=== PATIENT | male | born 1950 | race Caucasian/White ===

== ENCOUNTER 2021-04-22 06:47 | Day surgery (SDC) | payer MEDICARE, BC ==
[2021-04-22] MEDS ORDERED: Midazolam 1 MG/ML 2 ML SDV ONE (07:16)
[2021-04-22] MEDS ORDERED: fentaNYL 100 MCG/2 ML SDV ONE (07:16)
[2021-04-22] MEDS ORDERED: Propofol 200 MG/20 ML SDV ONE (07:16)
[2021-04-22] MEDS ORDERED: Sodium Chloride 0.9% 1,000 ML IV SCH (07:30)
[2021-04-22 09:42] VITALS: BP 159/90; PULSE 78
--- NOTE | 2021-04-22 12:49 | OR ---
DATE OF PROCEDURE: SURGEON: Jasson Pandey MD PROCEDURE: Colonoscopy. FINDINGS: 1. Diverticulosis, moderate, mostly concentrated in the sigmoid colon, but throughout the majority of the colon. 2. Transverse colon polyp #1, approximately 5 mm, completely removed using cold biopsy forceps. 3. Transverse colon polyp #2, approximately 5 mm, completely removed using cold biopsy forceps. 4. Transverse colon polyp #3, completely removed using cold biopsy forceps. COMPLICATIONS: None. DIAGNOSTIC RADIOLOGIC TECHNOLOGIST: None. ANESTHESIA: MAC. PREOPERATIVE DIAGNOSIS: Screening colonoscopy. POSTOPERATIVE DIAGNOSIS: Screening colonoscopy. RISKS: Risks, benefits, alternatives and limitations, including but not limited to infection, bleeding, perforation, false positives, false negatives were explained to the patient and he wished to proceed. PROCEDURE IN DETAIL: The patient was placed in left lateral decubitus position. Digital rectal exam was performed without abnormality. Scope was introduced and advanced atraumatically to the ileocecal valve. A photo was taken of this. Scope was brought back to the ascending, transverse, descending colon, and retroflexed. No evidence of old or new blood. No masses. The aforementioned polyps were identified and completely removed using cold biopsy forceps. Greater than 8 minutes was spent removing the scope. No abnormal bleeding was noted after removal. The prep was acceptable, approximately 90% of the luminal surface could be seen. The patient had a significantly tortuous sigmoid colon. The diverticulosis would be described as mostly densely concentrated in the sigmoid colon in a classic pattern, however, this was throughout the entire colon. No abnormalities on retroflexion. Greater than 8 minutes was spent removing the scope. The patient tolerated the procedure well. Jasson Pandey MD /[id number]
== END 2021-04-22 09:43 | disposition home or self-care (01) ==
LOC: JP.SDS 06:47
PROVIDERS: ATTEND Surgery
DX: Z12.11 Encounter for screening for malignant neoplasm of colon (principal); D12.3 Benign neoplasm of transverse colon; K57.30 Diverticulosis of large intestine without perforation or abscess without bleeding; I10 Essential (primary) hypertension; E11.9 Type 2 diabetes mellitus without complications
CPT/HCPCS: 88305; J2250; J2704; J3010; J7030

== ENCOUNTER 2021-05-29 09:36 | Emergency (ER) | payer MEDICARE, BC ==
[2021-05-29 10:32] VITALS: BP 193/105
[2021-05-29 10:42] VITALS: PULSE 96
--- NOTE | 2021-05-29 11:08 | EDM.PDOC ---
ED HPI GENERAL MEDICAL PROBLEM - General Chief Complaint: ENT Problem Stated Complaint: TEETH PULLED ON THURS.-MEDS DONT WORK FOR PAIN Time Seen by Provider: 05/29/21 10:55 Source of Information: Reports: Patient History Limitations: Reports: No Limitations - History of Present Illness INITIAL COMMENTS - FREE TEXT/NARRATIVE: 70-year-old male with advanced dental decay, had 3 molars extracted 3 days ago and is having significant discomfort, mild swelling, and was told to seek extra pain control if Tylenol and ibuprofen was not sufficient. He did not get any sleep last night and is concerned that infection is developing because there is so much discomfort. No fevers or chills. He has another appointment Sunday to get some more teeth extracted. Onset: Gradual Duration: Day(s): (Worsening over the past 3 days) Location: Reports: Face Associated Symptoms: Reports: Headaches, Malaise, Other (Difficulty eating). Denies: Fever/Chills - Related Data Allergies Allergy/AdvReac Type Severity Reaction Status Date / Time doxycycline Allergy Other Verified 04/22/21 07:05 lisinopril Allergy Other Verified 04/22/21 07:05 Home Meds: Home Meds Losartan [Cozaar] 50 mg PO DAILY 06/20/15 [History] Aspirin 325 mg PO DAILY 04/19/21 [History] Metoprolol Succinate 50 mg PO DAILY 04/19/21 [History] hydroCHLOROthiazide [Hydrochlorothiazide] 25 mg PO DAILY 04/19/21 [History] amLODIPine [Norvasc] 10 mg PO DAILY 04/22/21 [History] Past Medical History HEENT History: Reports: Impaired Vision Cardiovascular History: Reports: High Cholesterol, Hypertension Gastrointestinal History: Reports: Irritable Bowel Syndrome Musculoskeletal History: Reports: Fracture Hematologic History: Reports: Other (See Below) Other Hematologic History: lymes disease x 5 - Infectious Disease History Infectious Disease History: Reports: Chicken Pox, Measles, Shingles - Past Surgical History Cardiovascular Surgical History: Reports: None GI Surgical History: Reports: Colonoscopy Social & Family History - Family History Family Medical History: No Pertinent Family History - Tobacco Use Tobacco Use Status *Q: Never Tobacco User - Caffeine Use Caffeine Use: Reports: Soda - Recreational Drug Use Recreational Drug Use: No ED ROS ENT - Review of Systems Review Of Systems: See Below Constitutional: Reports: Malaise, Decreased Appetite. Denies: Fever, Chills HEENT: Reports: Dental Pain Respiratory: Denies: Shortness of Breath, Cough Cardiovascular: Denies: Chest Pain GI/Abdominal: Reports: Nausea. Denies: Abdominal Pain, Vomiting Skin: Reports: No Symptoms Neurological: Reports: Headache ED EXAM, ENT - Physical Exam Exam: See Below Exam Limited By: No Limitations General Appearance: Alert, No Apparent Distress (Looks very uncomfortable but not distressed) Eye Exam: Bilateral Eye: Normal Inspection Mouth/Throat: Other (Dental extraction sites look erythematous and mildly inflamed but no significant swelling or drainage) Neck: No: Lymphadenopathy (R), Lymphadenopathy (L) Respiratory/Chest: No Respiratory Distress Course - Vital Signs Last Recorded V/S: Last Vital Signs Temp 97.0 F 05/29/21 10:41 Pulse 96 05/29/21 10:41 Resp 16 05/29/21 10:41 BP 193/105 H 05/29/21 10:41 Pulse Ox 97 05/29/21 10:41 - Re-Assessments/Exams Free Text/Narrative Re-Assessment/Exam: 05/29/21 12:59 I think this patient is likely struggling with typical postinflammatory pain after a dental extraction. He was started on penicillin VK 500 4 times daily until he can be rechecked by his dentist later this week, and also given 10 hydrocodone for extra pain control. Continue with the regular dose of ibuprofen. Departure - Departure Time of Disposition: 11:18 Disposition: Home, Self-Care 01 Clinical Impression: Postoperative pain - Discharge Information Instructions: Acute Pain, Adult Referrals: PCP,None [Primary Care Provider] - Forms: ED Department Discharge Care Plan Goals: Continue with ibuprofen, add stronger pain medication as directed for the next 48 hours and take antibiotic as prescribed. Call the dentist in the next 48 hours if not improving satisfactorily. Sepsis Event Note (ED) - Evaluation Sepsis Screening Result: No Definite Risk - Focused Exam Vital Signs: Vital Signs Temp Pulse Resp BP Pulse Ox 05/29/21 10:41 97.0 F 96 16 193/105 H 97 05/29/21 10:31 97.0 F 97 16 193/105 H 97
== END 2021-05-29 11:18 | disposition home or self-care (01) ==
LOC: JP.ED 09:36
DX: G89.18 Other acute postprocedural pain (principal); I10 Essential (primary) hypertension; Z88.8 Allergy status to other drugs, medicaments and biological substances; Z79.82 Long term (current) use of aspirin; Z79.899 Other long term (current) drug therapy
CPT/HCPCS: 99283